=== PATIENT | female | born 1960 | race Caucasian/White ===

== ENCOUNTER → 2017-06-11 07:12 | Outpatient (CLI) | payer OTHER, SELFPAY ==
--- NOTE | 2017-06-11 10:22 | NEURO_ITS ---
NCS and/or EMG Patient Report Ordering Doctor: Krystal Mercado DATE OF SERVICE: 06/11/17 This is a left upper extremity nerve conduction study performed on this 56-year- old female with symptoms including pain at the second digit for 6 months occasional radiating up the arm. No neck pain, she is healthy otherwise. Left upper extremity sensory and motor nerve conduction study is performed demonstrating prolongation of the median motor and sensory distal latency with mild reduction of the median motor amplitudes and conduction velocity. The ulnar motor and sensory and radial sensory responses are normal, the median F wave is mildly prolonged compared to the ulnar F wave. Impression this is an abnormal nerve conduction study of left upper extremity consistent with moderate carpal tunnel syndrome at the left wrist.
== END ==
PROVIDERS: Family Provider Family Medicine; PCP Family Medicine; Visit Provider Family Medicine
DX: G56.02 Carpal tunnel syndrome, left upper limb (principal)
CPT/HCPCS: 95909

== ENCOUNTER → 2017-07-16 16:44 | Outpatient (CLI) | payer OTHER, SELFPAY | PROVIDERS: Visit Provider Family Medicine | DX: R39.9 Unspecified symptoms and signs involving the genitourinary system (principal) | CPT/HCPCS: 87086; 87088 ==

== ENCOUNTER 2017-09-26 10:00 | Outpatient (RCR) | payer OTHER, SELFPAY ==
--- NOTE | 2017-09-02 09:25 | HP.PTEVAL_ITS ---
Patient's Visit Information BRET MAI is a 57 year old F referred to Physical Therapy by Chad Armenta with a diagnosis of Biceps Tendonitis. Date of Evaluation: 09/02/17 Physical Therapist: Gloria Sanchez - Visit Plan Frequency: 2x /Week Duration: 4 Weeks Plan: Focus on scap s/s- postural correction. - Subjective Subjective: Left shoulder tendonitis- has been bothering her about a year ago but started working out and it got better- 3 weeks ago got worse secondary to carpal tunnel surgery. The shoulder has gotten better as she is sleeping and getting back to normal activity. Best: 2/10- Eases: ice and Tylenol. Pain is located in the bicipital groove- Radiates to the elbow and sometimes in the scapula area. No increase in RICO, blurred vision, dizziness. Describes pain as dull and achy. No problems with finger dexterity and N/T now since carpal tunnel. Worst: 8/10 Agg: sitting. Sleep: disturbed- back sleeper. Plan is to get back to her normal exercise program- stay fit 24- doing the weight machines and TM- no limitation from surgeon. 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 X-ray: tendonitis of the shoulder. Has never had neck issues before. PMHx/Meds: no changes. Right hand Dominate. - Objective Posture: FH, RS, Increased kyphosis- can correct but does not maintain. Palpation: tender along medial border of the scapula, upper trap to the tip of the acromion, bicipital groove. ROM: Cervical: Flexion/extn: WNL, SB to the left- increases pain, Rot to the right: increases pain. Shoulder: WFL with pain abduction and IR. Elbow/Wrist/Hand: WNL. Strength: scap: fair minus, Shoulder: 4/5 throughout with pain, Elbow: 4+/5 with pain. Wrist/Hand: not tested. Sensation: WNL. Parnell Vance: positive, Neer: positive - Goals Goal 1:: Patient will be I with HEP and progression Goal Time Frame: 4-6 Weeks Goal 2:: Patient will maintain proper posture t/o tx session to demo increased scap s/s Goal Time Frame: 4-6 Weeks Goal 3:: Patient will report 0/10 pain for 1 week Goal Time Frame: 4-6 Weeks - Rehabilitation Potential Physical Therapy Diagnosis: Patient presents with hypomobility- she has decreased scapular s/s leading to poor posture and increased pain Rehabilitation Potential: Good - Anticipated Interventions Therapeutic Exercise to Include: Strength training, Endurance training, Coordination, Body mechanics, Postural training, Scapular Strength/Stabilization For the Purpose of:: To improve muscle performance and motor function TENS: Yes Cryotherapy (ice pack, ice massage): Yes Thermo therapy (hot pack): Yes Ultrasound (thermal/non thermal): Yes For the Purpose of:: To decrease pain Thank you for the opportunity to evaluate your patient. For Medicare and Medicare HMO plans, please review the plan of care and approve it. It will need to be FAXED BACK to us at [phone] for Medicare purposes. Please let me know if there are questions or concerns regarding this plan of care. Physician Signature: Date:
--- NOTE | 2017-09-26 10:00 | DT_ITS ---
This patient was seen during an EMR downtime September 22, 2017 - September 29, 2017. This patient may have a combination of paper and electronic documentation or all paper documentation. All documentation is viewable within the e-chart portion of [employer] [facility] for each patient visit.
--- NOTE | 2017-09-30 17:17 | HP.PTDCSUM_ITS ---
HP - PT D/C Summary It has been my pleasure to treat BRET MAI under orders from Chad Armenta, for the diagnosis of Biceps Tendonitis for a total of 9 visit(s). Discharge Date: Please see the following information for a summary of their discharge status. - Subjective Subjective: Patient reports that the left shoulder is getting better. Her biggest complaint is that the neck and shoulder have significant stiffness in the AM- she uses ice and then she is good to go for the rest of the day. She does not have a specific sleep position and uses one pillow- which has not changed. She has not had injections in the shoulder but thinks the MD is leaning that way. She sees him this week. She rates the pain at a 6/10 at the worst but then reports being painfree the last 2 days. She would like to continue the exercises at home and be discharged from therapy at this time. - Pain Shoulder Pain Intensity (Out of 10): 7 - Objective Objective/Function: Due to electronic downtime procedure, the information from September 22 through September 28 was electronically scanned into medical records. Posture: FH, RS, increased kyphosis- can correct with verbal cues but does not maintain throughout session. Gait: no deviation- good arm swing and trunk rotation. ROM: WFL in all planes of the cervical spine, shoulder and elbow. Strength: 4+/5 in neutral. Special Test: Impingment: positive Empty Can: negative. Patient subjective and objective measures are inconsistent from visit to visit and often throughout the visit. - Goals Goal 1:: Patient will be I with HEP and progression Goal Progress: Progressing Goal 2:: Patient will maintain proper posture t/o tx session to demo increased scap s/s Goal Progress: Progressing Goal 3:: Patient will report 0/10 pain for 1 week Goal Progress: Progressing - Plan Plan: Discharge to [facility] per patient request- - D/C Information If there are questions or concerns regarding this patient's physical therapy, please feel free to call me at [phone]. Thank you for the referral of this patient. Sincerely, Gloria Sanchez
== END 2017-09-26 19:00 | disposition home or self-care (01) ==
LOC: PT 10:00
PROVIDERS: Family Provider Family Medicine; PCP Family Medicine; Visit Provider Physician Assistant
DX: M75.22 Bicipital tendinitis, left shoulder (principal)
CPT/HCPCS: 97110; 97161; 97530

== ENCOUNTER → 2018-05-11 08:26 | Outpatient (CLI) | payer OTHER, SELFPAY ==
--- NOTE | 2018-05-11 08:28 | RAD_ITS ---
STUDY: X-RAY - ESOPHAGUS (BARIUM SWALLOW) WITH FLUOROSCOPY REASON FOR EXAM: Female, 57 years old. Dysphagia. Upper abdominal pain. TECHNIQUE: 13 view(s) of the esophagus were obtained following swallowing of barium. FLUOROSCOPY TIME (if supplied): (0:26) minutes/seconds COMPARISON: None. FINDINGS: There is no demonstrated esophageal foreign body. There is no demonstrated stricture or mucosal abnormality. Normal gastroesophageal junction, without a demonstrated hiatal hernia. The patient ingested a 12 mm tablet of barium without any difficulty. Normal visualized aortic arch and descending thoracic aorta. Normal visualized pulmonary parenchyma. Normal visualized osseous structures of the thorax. RAD/Esophagus Only IMPRESSION: Normal plain film x-ray examination (barium swallow) of the esophagus. Electronically Signed: Derek Wright MD at 10:01 EST Tel [phone], Service support ,
--- OUTSIDE RECORDS SUMMARY | 2018-07-13 15:43 | XMS RPT_ITS ---
:1960 Author Organization OHIP Care Team Providers Name Role Phone Krystal Mercado Attending Unavailable Krystal Mercado Referring Unavailable Krystal Mercado Primary Care Unavailable Krystal Mercado Attending Unavailable Krystal Mercado Primary Care Unavailable Krystal Mercado Referring Unavailable Krystal Mercado Attending Unavailable Chad Armenta Attending Unavailable Chad Armenta Referring Unavailable Krystal Mercado Primary Care Unavailable PROBLEMS PROBLEMS DATE TYPE CONDITION / CODE ATTENDING STATUS SOURCE 10/08/2017 Unknown M75.22 - Bicipital Chad Armenta Active [place] tendinitis, left [facility] shoulder [facility] M75.22(ICD-10) Repository 07/16/2017 Unknown R39.9 - Unspecified Krystal Mercado Active [place] symptoms and signs Community involving the Hospital genitourinary Repository system / R39.9(ICD-10) 06/11/2017 Unknown G56.02 - Carpal Krystal Mercado Active [place] tunnel syndrome, [facility] left upper limb / Hospital G56.02(ICD-10) Repository PROCEDURES PROCEDURES No Procedure Records FoundRESULTS RESULTS ESOPHAGUS ONLY Observed: 05/11/2018 Status: F Source: [place] 8:[address] [facility] REPOSITORY [facility] Imaging Services [address] [place] [address] Esophagus Only MR#: [id number] Acct: [id number] Name: BRET MAI Rep #: [id number] : 1960 F 57 From: Deerk Wright MD PCP: Krystal Mercado MD Status: REG CLI Study: Esophagus Only Date of Exam: 05/11/18 Exam# [id number] Ordering Dr: Krystal Mercado MD STUDY: X-RAY - ESOPHAGUS (BARIUM SWALLOW) WITH FLUOROSCOPY REASON FOR EXAM: Female, 57 years old. Dysphagia. Upper abdominal pain. TECHNIQUE: 13 view(s) of the esophagus were obtained following swallowing of barium. FLUOROSCOPY TIME (if supplied): (0:26) minutes/seconds COMPARISON: None. FINDINGS: There is no demonstrated esophageal foreign body. There is no demonstrated stricture or mucosal abnormality. Normal gastroesophageal junction, without a demonstrated hiatal hernia. The patient ingested a 12 mm tablet of barium without any difficulty. Normal visualized aortic arch and descending thoracic aorta. Normal visualized pulmonary parenchyma. Normal visualized osseous structures of the thorax. RAD/Esophagus Only IMPRESSION: Normal plain film x-ray examination (barium swallow) of the esophagus. Electronically Signed: Derek Wright MD at 10:01 EST Tel [phone], Service support , CC: Krystal Mercado MD Artificial Teeth Inspector: Signed DOWNTIME REPORT Observed: 10/09/2017 Status: F Source: [place] 12:[address] [facility] REPOSITORY [facility] Medical Records Department [address] [place] [address] Downtime Report MR#: [id number] Acct: [id number] Name: BRET MAI Rep #: [id number] : 1960 57 From: Jamir Downs PCP: Krystal Mercado MD Status: DIS RCR This patient was seen during an EMR downtime September 22, 2017 - September 29, 2017. This patient may have a combination of paper and electronic documentation or all paper documentation. All documentation is viewable within the e-chart portion of [employer] for each patient visit. PT D/C SUMMARY (1) Observed: 09/30/2017 Status: F Source: [place] 5:[address] [facility] REPOSITORY [facility] Physical [facility] [address] [place] [address] Fax REHABILITATION SERVICES DISCHARGE SUMMARY MR#: [id number] Acct: [id number] Name: BRET MAI Rep #: [id number] : 1960 57 From: Gloria Sanchez DPT Referring Dr.: Chad GANN Status: REG RCR Insurance: [facility] SELF PAY INSURANCE HP - PT D/C Summary It has been my pleasure to treat BRET MAI under orders from Chad Armenta, for the diagnosis of Biceps Tendonitis for a total of 9 visit(s). Discharge Date: Please see the following information for a summary of their discharge status. - Subjective Subjective: Patient reports that the left shoulder is getting better. Her biggest complaint is that the neck and shoulder have significant stiffness in the AM- she uses ice and then she is good to go for the rest of the day. She does not have a specific sleep position and uses one pillow- which has not changed. She has not had injections in the shoulder but thinks the MD is leaning that way. She sees him this week. She rates the pain at a 6/10 at the worst but then reports being painfree the last 2 days. She would like to continue the exercises at home and be discharged from therapy at this time. - Pain Shoulder Pain Intensity (Out of 10): 7 - Objective Objective/Function: Due to electronic downtime procedure, the information from September 22 through September 28 was electronically scanned into medical records. Posture: FH, RS, increased kyphosis- can correct with verbal cues but does not maintain throughout session. Gait: no deviation- good arm swing and trunk rotation. ROM: WFL in all planes of the cervical spine, shoulder and elbow. Strength: 4+/5 in neutral. Special Test: Impingment: positive Empty Can: negative. Patient subjective and objective measures are inconsistent from visit to visit and often throughout the visit. - Goals Goal 1:: Patient will be I with HEP and progression Goal Progress: Progressing Goal 2:: Patient will maintain proper posture t/o tx session to demo increased scap s/s Goal Progress: Progressing Goal 3:: Patient will report 0/10 pain for 1 week Goal Progress: Progressing - Plan Plan: Discharge to [facility] per patient request- - D/C Information If there are questions or concerns regarding this patient's physical therapy, please feel free to call me at [phone]. Thank you for the referral of this patient. Sincerely, Gloria Sanchez <Electronically signed by Gloria Sanchez DPT> 09/30/17 4907 CC: Krystal Mercado MD; Chad GANN ELR Signed INITAL EVALUATION (1) Observed: 09/02/2017 Status: F Source: [place] - 9:[address] [facility] REPOSITORY [facility] [address] [place] [address]. [address] [place], [place] [address] Fax REHABILITATION SERVICES INITIAL EVALUATION MR#: [id number] Acct: [id number] Name: BRET MAI Rep #: [id number] : 1960 57 From: Gloria Sanchez DPT Referring Dr.: Chad GANN Status: REG RCR Insurance: [facility] SELF PAY INSURANCE Patient's Visit Information BRET MAI is a 57 year old F referred to Physical Therapy by Chad Armenta with a diagnosis of Biceps Tendonitis. Date of Evaluation: 09/02/17 Physical Therapist: Gloria Sanchez - Visit Plan Frequency: 2x /Week Duration: 4 Weeks Plan: Focus on scap s/s- postural correction. - Subjective Subjective: Left shoulder tendonitis- has been bothering her about a year ago but started working out and it got better- 3 weeks ago got worse secondary to carpal tunnel surgery. The shoulder has gotten better as she is sleeping and getting back to normal activity. Best: 05/31- Eases: ice and Tylenol. Pain is located in the bicipital groove- Radiates to the elbow and sometimes in the scapula area. No increase in RICO, blurred vision, dizziness. Describes pain as dull and achy. No problems with finger dexterity and N/T now since carpal tunnel. Worst: 11/28 Agg: sitting. Sleep: disturbed- back sleeper. Plan is to get back to her normal exercise program- stay fit 24- doing the weight machines and TM- no limitation from surgeon. 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 X-ray: tendonitis of the shoulder. Has never had neck issues before. PMHx/Meds: no changes. Right hand Dominate. - Objective Posture: FH, RS, Increased kyphosis- can correct but does not maintain. Palpation: tender along medial border of the scapula, upper trap to the tip of the acromion, bicipital groove. ROM: Cervical: Flexion/extn: WNL, SB to the left- increases pain, Rot to the right: increases pain. Shoulder: WFL with pain abduction and IR. Elbow/Wrist/Hand: WNL. Strength: scap: fair minus, Shoulder: 4/5 throughout with pain, Elbow: 4+/5 with pain. Wrist/Hand: not tested. Sensation: WNL. Soheila Woodard: positive, [place]: positive - Goals Goal 1:: Patient will be I with HEP and progression Goal Time Frame: 4-6 Weeks Goal 2:: Patient will maintain proper posture t/o tx session to demo increased scap s/s Goal Time Frame: 4-6 Weeks Goal 3:: Patient will report 0/10 pain for 1 week Goal Time Frame: 4-6 Weeks - Rehabilitation Potential Physical Therapy Diagnosis: Patient presents with hypomobility- she has decreased scapular s/s leading to poor posture and increased pain Rehabilitation Potential: Good - Anticipated Interventions Therapeutic Exercise to Include: Strength training, Endurance training, Coordination, Body mechanics, Postural training, Scapular Strength/Stabilization For the Purpose of:: To improve muscle performance and motor function TENS: Yes Cryotherapy (ice pack, ice massage): Yes Thermo therapy (hot pack): Yes Ultrasound (thermal/non thermal): Yes For the Purpose of:: To decrease pain Thank you for the opportunity to evaluate your patient. For Medicare and Medicare HMO plans, please review the plan of care and approve it. It will need to be FAXED BACK to us at [phone] for Medicare purposes. Please let me know if there are questions or concerns regarding this plan of care. Physician Signature: Date: <Electronically signed by Gloria Sanchez DPT> 09/02/17 0925 CC: Krystal Mercado MD; Chad GANN ELR Signed For Medicare only, by signing this I certify the plan of care. Physicians Signature Date Observed: 07/16/2017 Status: F Source: [place] CULTURE, URINE 4:[address] [facility] REPOSITORY Order Date: 07/16/17 Order Info: 630-4 - CUUR Specimen Source: clean catch Urine Culture ORGANISM 1: Mixed Gram Pos AND Gram Neg Org [place] Plane Count 1000-10,000 MIX CULTURE Mixed contaminants. Submit a new specimen if indicated. Performed By: #### M100.0650 #### [facility] [address] [place], [address] NCS AND/OR EMG Observed: 06/11/2017 Status: F Source: [place] PATIENT 10:[address] [facility] REPOSITORY [facility] Pulmonary Services/Neurology [address] [place] [address] MR#: [id number] Acct: [id number] Name: BRET MAI Rep #: [id number] : 1960 56 From: Kev Kaplan MD Referring Dr: Krystal Mercado MD Status: REG CLI Ordering Dr: Date: Location: PSN Sex: F C NCS and/or EMG Patient Report Ordering Doctor: Krystal Mercado DATE OF SERVICE: 06/11/17 This is a left upper extremity nerve conduction study performed on this 56-year-old female with symptoms including pain at the second digit for 6 months occasional radiating up the arm. No neck pain, she is healthy otherwise. Left upper extremity sensory and motor nerve conduction study is performed demonstrating prolongation of the median motor and sensory distal latency with mild reduction of the median motor amplitudes and conduction velocity. The ulnar motor and sensory and radial sensory responses are normal, the median F wave is mildly prolonged compared to the ulnar F wave. Impression this is an abnormal nerve conduction study of left upper extremity consistent with moderate carpal tunnel syndrome at the left wrist. 06/11/17 1038 <Electronically signed by Kev Kaplan MD> Date Kev Kaplan MD CC: Krystal Mercado MD; Kev Kaplan MD Date Dictated: 06/11/17 1020 Date Transcribed: 06/11/17 1020 Artificial Teeth Inspector: NF Signed ALLERGIES ALLERGIES DATE TYPE / CODE NAME / CODE REACTION SEVERITY SOURCE 02/10/2015 Drug paroxetine Other Unknown [place] Allergy/416 HCl/[id number](RXNO [address]) Repository 02/10/2015 Drug fexofenadine Other Unknown [place] Allergy/416 HCl/[id number](NO [address]) Repository 02/10/2015 Drug Penicillins/[id number] Nausea/Vom/Leydi Unknown [place] Allergy/416 476(RXNORM) rrhea [facility] 237292([facility] ED CT) Repository ENCOUNTERS ENCOUNTERS ADMIT/DISCHARGE ACCOUNT ADMITTING ENCOUNTER LOCATION SOURCE NUMBER CLASS 05/11/2018 [id number] Ambulatory [place] 6 [facility] ing:RAD Repository 09/26/2017/ [id number] Ambulatory [place] 8 1 [facility] ing:PT Repository 07/16/2017 [id number] Ambulatory [place] 6 [facility] ing:LABSPEC Repository 06/11/2017 [id number] Ambulatory [place] 0 [facility] ing:PSN Repository PAYERS PAYERS ENCOUNTER GUARANTOR PAYER SUBSCRIBER SOURCE 05/11/2018 BRET Cuevas [id number] Primary JOVAN ZHONG Insurance:MEDICAL I[place]OB: [facility] [id number] [facility] [address]Cud: [phone]) Number: Repository [phone] () [id number] Date:[id number] [address] [place] [id number]: 05/11/2018 Secondary NOT GIVENUNK [place] Insurance:SELF PAY [facility] Number: Effective Repository Date:2018-05-06 09/26/2017 Bret Cuevas [id number] Primary [place] Insurance:MEDICAL I[place]OB: [facility] [id number] [id number]: [phone]) Number: Repository [phone] () [id number] Date:[id number] [address] [place], [place] [address]WP: 09/26/2017 Secondary NOT GIVENUNK [place] Insurance:SELF PAY [facility] Number: Effective Repository Date:2017-08-28 07/16/2017 Bret Cuevas [id number] Primary [place] Insurance:MEDICAL IIDOB: [facility] [id number] [id number]: [phone]) Number: Repository [phone] () [id number] Date:[id number] [address] [place], [place] [address]: 07/16/2017 Secondary NOT GIVENUNK [place] Insurance:SELF PAY [facility] Number: Effective Repository Date:2017-07-16 06/11/2017 Bret Cuevas [id number] Primary JOVAN [place] Insurance:MEDICAL IIDOB: [facility] [id number] Hospital [address]Fmc: [phone]) Number: Repository [phone] () [id number] Date:[id number] [address], [place] [address]KA: 06/11/2017 Secondary NOT GIVENUNK [place] Insurance:SELF PAY [facility] Number: Effective Repository Date:2017-04-02
== END ==
PROVIDERS: Family Provider Family Medicine; PCP Family Medicine; Referring Provider Family Medicine; Visit Provider Family Medicine
DX: R10.9 Unspecified abdominal pain (principal)
CPT/HCPCS: 74220

== ENCOUNTER → 2018-07-06 14:39 | Outpatient (CLI) | payer OTHER, SELFPAY ==
--- NOTE | 2018-07-06 | IMM_PTH ---
PATIENT: BRET MAI LOC: [facility] U#:[id number] AGE/SX: 64/F ROOM: RE07/06/[address]: Dr. Gilbert Bose MD : 1960 BED: DIS: SPEC #: [id number] RECD: 07/07/18 12:31 STATUS: LETICIA TATY #: [id number] MICA: 07/06/18 00:[address]: Gilbert Bose DEPT: IMMUNOHISTOCHEMISTRY RECD BY: Roma Tinsley ENTERED: 07/07/18 12:31 SP TYPE: IMMUNO OTHR DR: Dr. Krystal Mercado MD Tissues: Stomach, NOS Procedures: H Pylori (initial) PHYSICIAN & INSTITUTION [place] [id number] SPECIMEN INFORMATION: Tissue Source: Gastric antrum body biopsy Clinical Info: Nausea, gastric pain Specimen Number: [id number] CPT code: 24749 METHODOLOGY: Deparaffinized sections of prefer/formalin-fixed tissue or PAP/DQ stained slides are incubated with monoclonal/polyclonal antibodies/oligonucleotide probes. Localization is made via biotin free immunoperoxidase method. Appropriate controls are performed and reacted as expected. Results on target cell population are indicated in the following table: RESULTS: ANTIBODY / CLONE RESULT H Pylori (polyclonal) negative These tests were developed and their performance characteristics determined by [facility]. They may not have been cleared or approved by the U.S. Food and Drug Administration. The FDA has determined that such clearance or approval is not necessary. INTERPRETATION: Gastric antrum body, biopsy: Negative for Helicobacter pylori organisms. SJ:claire 07/07/18
--- NOTE | 2018-07-06 08:28 | EGD_PTH ---
PATIENT: BRET MAI LOC: [facility] U#:[id number] AGE/SX: 64/F ROOM: RE07/06/[address]: Dr. Gilbert Bose MD : 1960 BED: DIS: SPEC #: [id number] RECD: 07/06/18 14:23 STATUS: LETICIA WELL[place]Ciar[place] #: [id number] MICA: 07/06/18 08:[address]: Gilbert Bose DEPT: SURGICAL PATHOLOGY RECD BY: Dangelo Vargas ENTERED: 07/06/18 14:49 SP TYPE: EGD BIOPSY OTHR DR: Dr. Krystal Mercado MD [facility] Tissues: Gastric mucous membrane Procedures: Surgery Specimen Level IV HEADER OPERATION: EGD with biopsies PRE-OP DIAGNOSIS: Nausea, gastric pain TISSUE SUBMITTED: Gastric antrum body biopsies, rule out gastritis MICROSCOPIC DIAGNOSIS Gastric antrum body, biopsy: Mild gastritis. See microscopic description and comment. SJ:claire 07/07/18 COMMENT The results of immunohistochemistry for Helicobacter pylori will be reported separately ([id number]). MICROSCOPIC DESCRIPTION Slides are reviewed. The specimen shows fragments of gastric mucosa with chronic inflammatory cell infiltrates in the lamina propria consisting of lymphocytes and plasma cells, consistent with mild chronic gastritis. GROSS DESCRIPTION Received in fixative is one container labeled with the patient's name and designated gastric antrum body biopsy. The specimen consists of multiple irregular fragments of light ponce soft tissue that in aggregate measure 0.6 x 0.5 x 0.1 cm. The specimen is totally submitted in one cassette. / SJ:rg 07/06/18 TC:5 CPT: 09907
== END ==
PROVIDERS: Family Provider Family Medicine; PCP Family Medicine; Referring Provider Internal Medicine Gastroenterology; Visit Provider Internal Medicine Gastroenterology
DX: R11.0 Nausea (principal); R10.13 Epigastric pain
CPT/HCPCS: 88305; 88342

== ENCOUNTER → 2018-08-28 10:56 | Outpatient (CLI) | payer OTHER, SELFPAY ==
[2018-08-28 10:46] VITALS: BMI 40.5
--- NOTE | 2018-08-28 10:58 | RAD_ITS ---
STUDY: X-RAY - LEFT ELBOW REASON FOR EXAM: Female, 58 years old. Posterior elbow pain following a fall. TECHNIQUE: 3 view(s) of the elbow. COMPARISON: None. FINDINGS: Normal visualized humerus, radius and ulna. Normal radiocapitellar and ulnotrochlear articulations. The soft tissue structures are unremarkable. RAD/Elbow min 3 Views IMPRESSION: Normal x-ray examination of the elbow. Electronically Signed: Derek Wright, at 11:21 EDT , Service support ,
== END ==
PROVIDERS: Family Provider Family Medicine; PCP Family Medicine; Referring Provider Physician Assistant Surgical; Visit Provider Physician Assistant Surgical
DX: S50.02XA Contusion of left elbow, initial encounter (principal); X58.XXXA Exposure to other specified factors, initial encounter; Y93.9 Activity, unspecified; Y92.9 Unspecified place or not applicable; Y99.9 Unspecified external cause status
CPT/HCPCS: 73080

== ENCOUNTER → 2018-09-22 14:43 | Outpatient (CLI) | payer OTHER, SELFPAY ==
[2018-08-28 10:46] VITALS: BMI 40.5
== END ==
PROVIDERS: Family Provider Family Medicine; PCP Family Medicine; Referring Provider Family Medicine; Visit Provider Family Medicine
DX: N39.0 Urinary tract infection, site not specified (principal)
CPT/HCPCS: 87086; 87088

== ENCOUNTER → 2019-06-18 14:57 | Outpatient (CLI) | payer OTHER, SELFPAY ==
[2018-08-28 10:46] VITALS: BMI 40.5
[2019-06-18 17:40] LABS: Internal QC Validated? YES +Cl - CLEAR BKGD; Monotest Negative (Negative)
[2019-06-18 17:44] LABS: Absolute Lymphocyte Count 2.32 X10^3/uL (0.83-4.51); Absolute Neutrophil Count 4.9 X10^3/uL (2.0-7.7); Basophil# 0.04 X10^3/uL; Basophil% 0.5 % (0-1); Eosinophil# 0.25 X10^3/uL; Eosinophils% 3.1 % (0-5); Hematocrit 41.4 % (37-47); Hemoglobin 13.4 g/dL (12.0-15.0); Lymphocyte # 2.32 X10^3/ul (4.0); Lymphocyte % 29.1 % (19-41); Mean Corp Hgb Conc 32.4 g/dL (32-36); Mean Corpuscular Hgb 30.5 pg (27.0-32.0); Mean Corpuscular Volume 94.3 fL (81-99); Mean Platelet Vol. 9.1 fl (6.2-12.0); Monocyte# 0.48 X10^3/uL; NRBC Flagged by Analyzer 0 % (0-5); Neutrophil # 4.85 X10^3/uL (2.7-7.7); Neutrophil % 60.9 % (47-70); Platelet Count 323 K/mm3 (150-450); RBC Distribution Width CV 12.8 % (11.6-14.6); RBC Distribution Width SD 44.2 fl (35.1-43.9); Red Blood Count 4.39 M/mm3 (4.2-5.4)
[2019-06-18 17:59] LABS: ALB/GLOB Ratio 0.9 RATIO (0.9-2.4); AST(SGOT) 22 U/L (15-37); Alanine Aminotransfer ALT/SGPT 27 U/L (13-56); Albumin, Serum 3.5 g/dL (3.2-5.0); Alkaline Phosphatase 106 U/L (45-117); Anion Gap 7 (5-15); BUN 14 mg/dL (7-18); BUN/Creat Ratio 17.2 RATIO (10-20); Calcium,Total 8.6 mg/dL (8.5-10.1); Chloride 105 mmol/L (98-107); Creatinine, Serum 0.82 mg/dL (0.55-1.02); EST Glomerular Filtration Rate 76 mL/min (>60); Est Glom Filt Rate - Afr Amer 92 mL/min (>60); Globulin 4.1 g/dL (2.2-4.2); Glucose 123 mg/dL (74-106); Potassium 3.8 mmol/L (3.5-5.1); Protein, Total 7.6 g/dL (6.4-8.2); Sodium Level 138 mmol/L (136-145); Thyroid Stim Hormone (TSH) 2.02 uIU/mL (0.358-3.74)
== END ==
PROVIDERS: PCP Family Medicine; Visit Provider Family Medicine
DX: R53.81 Other malaise (principal); R53.83 Other fatigue
CPT/HCPCS: 36415; 80053; 84443; 85025; 86308

== ENCOUNTER → 2019-12-20 17:23 | Outpatient (CLI) | payer OTHER, SELFPAY ==
[2018-08-28 10:46] VITALS: BMI 40.5
== END ==
PROVIDERS: PCP Family Medicine; Referring Provider Family Medicine; Visit Provider Family Medicine
DX: U07.1 COVID-19 (principal)
CPT/HCPCS: 87635; 94799; U0003

== ENCOUNTER → 2020-10-16 16:34 | Outpatient (CLI) | payer OTHER, SELFPAY ==
[2018-08-28 10:46] VITALS: BMI 40.5
[2020-10-16 18:23] LABS: Absolute Lymphocyte Count 2.61 X10^3/uL (0.83-4.51); Absolute Neutrophil Count 4.9 X10^3/uL (2.0-7.7); Basophil# 0.06 X10^3/uL; Basophil% 0.7 % (0-1); Eosinophil# 0.25 X10^3/uL; Hematocrit 40.3 % (37-47); Hemoglobin 13.2 g/dL (12.0-15.0); Lymphocyte # 2.61 X10^3/ul (0.83-4.51); Lymphocyte % 31.2 % (19-41); Mean Corp Hgb Conc 32.8 g/dL (32-36); Mean Corpuscular Hgb 31.1 pg (27.0-32.0); Monocyte# 0.51 X10^3/uL; Monocyte% 6.1 % (0-10); NRBC Flagged by Analyzer 0 % (0-5); Neutrophil % 58.6 % (47-70); Platelet Count 339 K/mm3 (150-450); RBC Distribution Width CV 12.8 % (11.6-14.6); Red Blood Count 4.24 M/mm3 (4.2-5.4); White Blood Count 8.4 K/mm3 (4.4-11.0)
[2020-10-16 18:45] LABS: AST(SGOT) 21 U/L (15-37); Alanine Aminotransfer ALT/SGPT 29 U/L (13-56); Albumin, Serum 3.6 g/dL (3.2-5.0); Alkaline Phosphatase 116 U/L (45-117); Anion Gap 7 (5-15); BUN 12 mg/dL (7-18); Calcium,Total 8.9 mg/dL (8.5-10.1); Chloride 103 mmol/L (98-107); Cholesterol 187 mg/dL (200); Creatinine, Serum 0.75 mg/dL (0.55-1.02); EST Glomerular Filtration Rate 83 mL/min (>60); Est Glom Filt Rate - Afr Amer 101 mL/min (>60); Globulin 3.7 g/dL (2.2-4.2); Glucose 123 mg/dL (74-106); High Density Lipoprotein 37 mg/dL; Potassium 4.3 mmol/L (3.5-5.1); Protein, Total 7.3 g/dL (6.4-8.2); Sodium Level 140 mmol/L (136-145); Triglycerides 405 mg/dL
== END ==
PROVIDERS: PCP Family Medicine; Visit Provider Family Medicine
DX: K65.1 Peritoneal abscess (principal)
CPT/HCPCS: 36415; 80053; 80061; 85025

== ENCOUNTER 2020-10-16 17:12 | Emergency (ER) | payer OTHER, SELFPAY ==
[2018-08-28 10:46] VITALS: BMI 40.5
[2020-10-16 17:14] VITALS: BP 155/86; PULSE 74; RESP 15; TEMP 36.8; O2SAT 98; BMI 40.4
--- NOTE | 2020-10-16 18:50 | CT_ITS ---
INDICATION: abdominal pain -- IV PO Contrast EXAMINATION: CT Abdomen And Pelvis W/ Contrast Injection TECHNIQUE: Helically acquired images were obtained of the abdomen and pelvis after IV contrast. A radiation dose optimization technique was used for this scan. IV Contrast dosage and agent: Oral and amp; IV Gastrografin and amp; 100mL Isovue-300 Oral contrast: None. COMPARISON: None. FINDINGS: Visualized lung bases: Small calcified granuloma in the right lung base. Liver: Liver is enlarged measuring 22 cm in craniocaudal dimension. Gallbladder: Surgically absent. Spleen: There is heterogeneous enhancement of the spleen. No focal discrete mass. Spleen is not enlarged. Pancreas: Unremarkable Adrenal Glands: Unremarkable Kidneys: Scattered too small to characterize subcentimeter hypodensities bilaterally. Vasculature: Mild scattered aortoiliac atherosclerotic calcifications. GI Tract: Unremarkable Lymphadenopathy: None Peritoneum: No ascites. Bladder: Unremarkable Reproductive organs: Unremarkable Bones/Soft tissues: Mild scattered degenerative changes of the visualized spine. CT/Abdomen/Pelvis WITH Contrast IMPRESSION: Heterogeneously enhancing non-enlarged spleen with no focal discrete mass. During portal venous phase of contrast, the spleen is expected to be homogeneous in appearance. Differential includes delayed enhancement, infarction and lymphoma. A multiphase MR abdomen may be beneficial. Hepatomegaly. No other acute findings. Electronically Signed: Jamie Oakley MD at 21:38 EDT Tel , Service support ,
--- NOTE | 2020-10-16 18:51 | EDS_ITS ---
HPI HPI - GI History of Present Illness Chief Complaint: Abd Pain Detail of Chief Complaint: Abdominal pain for 3 days and not feeling well for about a week Informant: patient Abdominal Pain/Flank Pain Current Severity: 6/10 Nausea/Vomiting/Emesis GI Symptom: Positive for Nausea Diarrhea/Melena/Hematochezia GI Symptom: Negative for Diarrhea, Melena and Hematochezia Narrative Narrative: Patient presents to the emergency department with complaint of not feeling well for the last week. Patient's had nausea. She started having abdominal pain 3 days ago. Pain is mostly to her right side and into her back. Patient continues to have nausea but no vomiting. She denies fevers. She denies urinary symptoms. She denies blood in her stool or black tarry stools. She had a normal bowel movement today. Patient was seen by physician ban for her primary care physician and was referred to the emergency department for further work-up of her abdominal pain. Patient has had prior cholecystectomy and prior C-sections. Prior similar symptoms: No PFSH PFSH Medical History (Updated 10/16/20 @ 21:[address] Melonie Brown, ) Back pain Difficulty balancing Fatigue Hay fever Hemorrhoids Shoulder pain Home Medications fluoxetine 20 mg capsule 40 mg PO DAILY 08/28/18 [History Last Taken Unknown] Allergy/AdvReac Type Severity Reaction Status Date / Time fexofenadine HCl Allergy Other Verified 10/16/20 17:13 [From Antonella] paroxetine HCl [From Paxil] AdvReac Other Verified 10/16/20 17:13 Penicillins AdvReac Nausea/Vom/ Verified 10/16/20 17:13 Diarrhea Surgical History History of cholecystectomy Hx of section Social History (Updated 08/28/18 @ 15:55 by João GANN, PA) Smoking Status: Never smoker alcohol intake: current details: SOCIALLY ROS ROS ED Constitutional Constitutional ED: Reports systems reviewed and no addt'l complaints, except as documented; Denies body ache(s), change in weight or chills Eyes Eyes: Denies acute decrease in peripheral vision, change in vision, double vision or loss of vision ENT ENT ED: Reports none; Denies ear pain, lip swelling, loss taste/smell, neck pain, otalgia or sore throat Cardiovascular Cardiovascular: Reports none; Denies abdominal pain, chest pain with activity, leg edema, lightheadedness, palpitations, rapid heart rate or syncope Respiratory/Chest Respiratory/Chest: Reports none; Denies change in mental status, dry cough, dyspnea, hemoptysis, shortness of breath at rest or shortness of breath with exertion Gastrointestinal Gastrointestinal: Reports abdominal pain and nausea; Denies constipation, diarrhea, melena or vomiting Genitourinary Genitourinary ED: Reports none; Denies abdominal discomfort, anuria, dysuria, genital pain or polyuria Musculoskeletal Musculoskeletal: Reports none; Denies arthralgias, back pain, difficulty walking, extremity pain, muscle weakness or myalgias Integumentary Reports none; Denies abscess or rash Neurologic Neurologic: Reports none; Denies abnormal gait, confusion, focal weakness, freq uent falls, headache(s), loss of vision, numbness, paresthesias, radicular pain, vertigo or weakness Psychiatric Psychiatric: Reports systems reviewed and no addt'l complaints, except as documented and none; Denies behavioral changes, confusion, difficulty concentrating, hallucinations, suicidal ideation, tactile hallucinations or visual hallucinations Endocrine Endocrinology: Denies none, cold intolerance, excessive sweating, fatigue or heat intolerance Hematologic/Lymphatic Hematologic/Lymphatic: Reports none; Denies anemia, easy bleeding or easy bruising Allergic/Immunologic Allergic/Immunologic ED: Denies as per HPI, none, lip swelling, mouth swelling, throat swelling, tongue swelling or hives EXAM Physical Exam Const Vital Signs: 10/16/20 17:14 10/16/20 21:00 Temperature 98.2 F Temperature Source Temporal Pulse Rate 74 71 Respiratory Rate 15 Blood Pressure 155/86 H 121/63 H Blood Pressure Mean 109 82 Pulse Ox 98 99 Oxygen Delivery Method Room Air Room Air Positive well nourished and well developed General Appearance ED: well developed and NAD HEENT Reports TM's clear and moist mucous membranes normocephalic and atraumatic; Negative for trauma or tenderness Tympanic Membrane ED: Yes TM's clear Eyes PERRL and EOMs intact bilaterally General Eye ED: Negative for pale conjunctiva or scleral icterus Neck no lymphadenopathy, supple and no JVD General: Negative for tenderness Chest Wall inspection of chest normal and palpation of chest normal Chest: Negative for tenderness Resp normal respiratory effort and clear to auscultation bilaterally Effort and Inspection: Negative for respiratory distress or pain with movement Auscultation: Negative for rhonchi, wheezes or diminished lung sounds Cardio regular rate, regular rhythm, S1 normal heart sound, S2 normal heart sound and no murmurs Peripheral Pulses: pulses 2+ throughout GI normal to inspection, nondistended, normoactive bowel sounds, soft to palpation, non-distended and no masses GI Narrative: Patient has tenderness palpation over the right lower quadrant over McBurney's with guarding. Patient also has tenderness palpation over the right upper quadrant. There is no rebound, rigidity, or perineal signs. Palpation: tender Back/Spine no CVA tenderness and no thoracic nor lumbar tenderness Extremity normal to inspection General Extremety ED: Negative for edema General Extremity: Negative for edema Neuro oriented x3, CN's II-XII intact bilaterally, no sensory deficits noted and gait normal Sensorium / Orientation: awake, alert, oriented to person, oriented to place and oriented to time Motor Exam: strength 5/5 throughout and strength abnormal Psych mental status grossly normal Skin no rashes or lesions noted and no wounds MDM MDM MDM Narrative Medical decision making narrative: Patient's work-up unremarkable in the department. She denies anything for pain. Patient states that her primary care physician ordered her something for pain for home. At this point etiology of her abdominal pain is unclear. On CT scan she did have some heterogenous opacification of the spleen which could be delayed filling of contrast versus infarction versus lymphoma. I did discuss this finding with patient however my suspicion of lymphoma and infarction are low especially given the patient has no pain to the left side. Patient's normal white blood cell count and essentially benign abdomen otherwise. She will follow-up with her primary care physician regarding these findings as radiology did recommend potentially obtaining an MR of the abdomen. Lab Data Attestation: I reviewed the patient's lab results. Labs: Laboratory Results - last 24 hr 10/16/20 10/16/20 10/16/20 18:45 18:45 19:00 WBC 10.2 RBC 4.37 Hgb 13.5 Hct 41.2 MCV 94.3 MCH 30.9 MCHC 32.8 RDW Std Deviation 43.8 RDW Coeff of Michael 12.6 Plt Count 318 MPV 8.6 Immature Gran % (Auto) 0.400 Neut % (Auto) 63.0 Lymph % (Auto) 27.4 [place] % (Auto) 6.3 Eos % (Auto) 2.5 Baso % (Auto) 0.4 Absolute Neuts (auto) 6.4 Absolute Lymphs (auto) 2.78 Nucleated RBC % 0 Sodium 139 Potassium 4.0 Chloride 104 Carbon Dioxide 30.0 Anion Gap 5 BUN 13 Creatinine 0.79 Estim Creat Clear Calc 58.40 Est GFR (MDRD) Af Amer 95 Est GFR (MDRD) Non-Af 79 BUN/Creatinine Ratio 16.5 Glucose 115 H Lactic Acid 1.3 Calcium 9.1 Total Bilirubin 0.30 AST 18 ALT 26 Alkaline Phosphatase 117 Total Protein 7.7 Albumin 3.7 Globulin 4.0 Albumin/Globulin Ratio 0.9 Lipase 225 Urine Color Urine Clarity Urine pH Ur Specific [place] Urine Protein Urine Glucose (UA) Urine Ketones Urine Occult Blood Urine Nitrite Urine Bilirubin Urine Urobilinogen Ur Leukocyte Esterase Urine RBC Urine WBC Ur Squamous Epith Cells Urine Bacteria Urine Mucus 10/16/20 19:00 WBC RBC Hgb Hct MCV MCH MCHC RDW Std Deviation RDW Coeff of Michael Plt Count MPV Immature Gran % (Auto) Neut % (Auto) Lymph % (Auto) [place] % (Auto) Eos % (Auto) Baso % (Auto) Absolute Neuts (auto) Absolute Lymphs (auto) Nucleated RBC % Sodium Potassium Chloride Carbon Dioxide Anion Gap BUN Creatinine Estim Creat Clear Calc Est GFR (MDRD) Af Amer Est GFR (MDRD) Non-Af BUN/Creatinine Ratio Glucose Lactic Acid Calcium Total Bilirubin AST ALT Alkaline Phosphatase Total Protein Albumin Globulin Albumin/Globulin Ratio Lipase Urine Color Yellow Urine Clarity Clear Urine pH 5.0 Ur Specific [place] 1.025 Urine Protein Negative Urine Glucose (UA) Normal Urine Ketones Negative Urine Occult Blood 10 H Urine Nitrite Negative Urine Bilirubin Negative Urine Urobilinogen Normal Ur Leukocyte Esterase Negative Urine RBC 0 SEEN Urine WBC 0 SEEN Ur Squamous Epith Cells 0-5 SEEN Urine Bacteria 1+ Urine Mucus 0 SEEN Radiography Diagnostic Testing: Radiology Impression Abdomen/Pelvis CT 10/16/20 18:50 IMPRESSION: Heterogeneously enhancing non-enlarged spleen with no focal discrete mass. During portal venous phase of contrast, the spleen is expected to be homogeneous in appearance. Differential includes delayed enhancement, infarction and lymphoma. A multiphase MR abdomen may be beneficial. Hepatomegaly. No other acute findings. Electronically Signed: Jamie Oakley MD at 21:38 EDT Tel , Service support , Discharge Plan Triage Chief Complaint: Abd Pain ED Provider: Melonie Brown Dx/Rx/DC Orders Clinical Impression: Abdominal pain Instructions: ED Abdominal Pain Unkn Cause Fem Prescriptions: No Action fluoxetine 20 mg capsule 40 mg PO DAILY RF: 0 Primary Care Provider: Krystal Mercado Referrals: Krystal Mercado MD [Primary Care Provider] - 3-5 Days Disposition Disposition: Home, Self Care
[2020-10-16] MEDS: 0.9% Normal Saline 1,000 ML 125 ML IV (19:05)
[2020-10-16 19:08] LABS: Mucous, Urine 0 SEEN /hpf (<or=2+); Red Blood Cells-Urine 0 SEEN /hpf (0-5); White Blood Cells 0 SEEN /hpf (0-5)
[2020-10-16 19:14] LABS: Absolute Lymphocyte Count 2.78 X10^3/uL (0.83-4.51); Absolute Neutrophil Count 6.4 X10^3/uL (2.0-7.7); Basophil# 0.04 X10^3/uL; Basophil% 0.4 % (0-1); Eosinophil# 0.25 X10^3/uL; Eosinophils% 2.5 % (0-5); Hematocrit 41.2 % (37-47); Hemoglobin 13.5 g/dL (12.0-15.0); Lymphocyte # 2.78 X10^3/ul (0.83-4.51); Lymphocyte % 27.4 % (19-41); Mean Corp Hgb Conc 32.8 g/dL (32-36); Mean Corpuscular Hgb 30.9 pg (27.0-32.0); Mean Corpuscular Volume 94.3 fL (81-99); Mean Platelet Vol. 8.6 fl (6.2-12.0); Monocyte# 0.64 X10^3/uL; Monocyte% 6.3 % (0-10); NRBC Flagged by Analyzer 0 % (0-5); Neutrophil # 6.41 X10^3/uL (2.7-7.7); Platelet Count 318 K/mm3 (150-450); RBC Distribution Width CV 12.6 % (11.6-14.6); RBC Distribution Width SD 43.8 fl (35.1-43.9); Red Blood Count 4.37 M/mm3 (4.2-5.4); White Blood Count 10.2 K/mm3 (4.4-11.0)
[2020-10-16 19:17] LABS: Color, Urine Yellow (Yellow); Glucose, Dipstick Normal (Normal); Ketone-Dipstick Negative (Negative); Leukocyte Esterase-Dipstick Negative /ul (Negative); Nitrite-Dipstick Negative (Negative); Occult Blood-Urine 10 /ul (Negative); Protein-Dipstick Negative (Negative); Specific Gravity, Urine 1.025 (1.002-1.030); Urine Bilirubin Dipstick Negative (Negative); Urine Clarity Clear (Clear); Urine Urobilinogen Normal (Normal)
[2020-10-16 19:27] LABS: ALB/GLOB Ratio 0.9 RATIO (0.9-2.4); AST(SGOT) 18 U/L (15-37); Alanine Aminotransfer ALT/SGPT 26 U/L (13-56); Albumin, Serum 3.7 g/dL (3.2-5.0); Alkaline Phosphatase 117 U/L (45-117); Anion Gap 5 (5-15); BUN 13 mg/dL (7-18); BUN/Creat Ratio 16.5 RATIO (10-20); Calcium,Total 9.1 mg/dL (8.5-10.1); Chloride 104 mmol/L (98-107); Creatinine, Serum 0.79 mg/dL (0.55-1.02); EST Glomerular Filtration Rate 79 mL/min (>60); Est Glom Filt Rate - Afr Amer 95 mL/min (>60); Glucose 115 mg/dL (74-106); Lipase 225 U/L (73-393); Protein, Total 7.7 g/dL (6.4-8.2); Sodium Level 139 mmol/L (136-145)
[2020-10-16 19:40] LABS: Bacteria 1+ /hpf (None Seen); Squamous Epithelial Cells - UA 0-5 SEEN /hpf (5-10)
[2020-10-16 19:50] LABS: Lactic Acid 1.3 mmol/L (0.4-1.9)
[2020-10-16 21:00] VITALS: BP 121/63; PULSE 71; O2SAT 99
[2020-10-16 21:58] VITALS: BP 121/63; PULSE 71; RESP 18
== END 2020-10-16 21:55 | disposition home or self-care (01) ==
PROVIDERS: Emergency Provider Emergency Medicine; PCP Family Medicine
DX: R10.9 Unspecified abdominal pain (principal); K65.1 Peritoneal abscess; R11.2 Nausea with vomiting, unspecified; Z90.49 Acquired absence of other specified parts of digestive tract; Z79.899 Other long term (current) drug therapy
CPT/HCPCS: 36415; 74177; 80053; 80061; 81001; 83605; 83690; 85025; 96360; 96361; 99283; J7030; Q9967; A4216

== ENCOUNTER → 2020-11-13 06:54 | Outpatient (CLI) | payer OTHER, SELFPAY ==
[2018-08-28 10:46] VITALS: BMI 40.5
[2020-10-16 17:14] VITALS: BMI 40.4
--- NOTE | 2020-11-13 08:24 | NEURO ---
NCS and/or EMG Patient Report Ordering Doctor: Krystal Mercado DATE OF SERVICE: 11/13/20 Indication: Right hand numbness and diminished dexterity. Symptoms are variable, worse in the morning or with repeated activity. No localized or radicular neck pain. Evaluate for entrapment neuropathy. Findings: Nerve conduction studies were performed in the right upper extremity. The right median motor study recording the abductor pollicis brevis showed a normal amplitude, prolonged distal latency and normal conduction velocity. The right ulnar motor study recording the abductor digiti minimi showed a normal amplitude, normal distal latency and normal conduction velocity. No conduction block or focal slowing was present across the elbow. The right median sensory response recording digit two showed a reduced amplitude, prolonged latency and markedly slowed conduction velocity. The right ulnar sensory response recording digit five showed a normal amplitude, latency and conduction velocity. The right radial sensory response recording over the extensor snuff box showed a normal amplitude, latency and conduction velocity. Right median-ulnar lumbrical / interosseous motor latencies showed a prolonged median latency compared to the ulnar. Needle EMG of the right upper extremity and cervical paraspinal muscles was performed. No denervation was seen in any muscle. In the right abductor pollicis brevis motor units were slightly polyphasic, but otherwise unremarkable. All other examined muscles revealed normal motor unit morphology, activation and recruitment patterns. Impression: This is an abnormal study. There is electrophysiologic evidence of median neuropathy across the wrist on the right side. The pathophysiology is demyelination. These findings are compatible with the clinical diagnosis of carpal tunnel syndrome. In addition, there is no electrophysiologic evidence of cervical radiculopathy, brachial plexopathy or other entrapment neuropathy in the right upper extremity. Jamie Romero D.O.
== END ==
PROVIDERS: PCP Family Medicine; Referring Provider Family Medicine; Visit Provider Family Medicine
DX: G56.01 Carpal tunnel syndrome, right upper limb (principal)
CPT/HCPCS: 95886; 95910

== ENCOUNTER → 2020-11-20 10:12 | Outpatient (CLI) | payer OTHER, SELFPAY ==
--- NOTE | 2020-11-20 10:24 | MRI_ITS ---
STUDY: MRI ABDOMEN WITH AND WITHOUT CONTRAST REASON FOR EXAM: Female, 60 years old. Genital malformation of spleen. Follow-up. TECHNIQUE: Standardized fat and water weighted pulse sequences were obtained in all 3 orthogonal planes post contrast administration. 20ml IV Dotarem was administered for the contrast portion of the examination. COMPARISON: CT of the abdomen and pelvis, 10/16/2020. FINDINGS: The visualized lung bases are unremarkable. The visualized portions of the heart are within normal limits. Liver is normal in size and contour. There is mild heterogeneity of signal intensity consistent with geographic fatty interval radiation. Gallbladder is not visualized. No biliary ductal dilatation. The spleen is normal in size contour and density. There is no focal mass. There is no abnormal contrast enhancement. Normal pancreas. Normal bilateral adrenal glands. Normal right kidney. Normal left kidney. Normal visualized stomach. Normal visualized small intestine. Normal visualized colon. Normal abdominal aorta. Normal inferior vena cava. Normal retroperitoneum. Normal abdominal wall. Normal osseous structures. MRI/MRI Abd WITH and W/O Contrast IMPRESSION: 1. Normal spleen. The irregular contrast enhancement seen in the spleen is thought due to early phase of enhancement. 2. Geographic fatty infiltration liver. 3. Otherwise normal MRI of the abdomen. Electronically Signed: Matheus Verdugo DO at 22:21 EDT Tel [phone], Service support ,
[2020-11-20 10:46] LABS: CREATININE FINGERSTICK 0.6 mg/dL (0.55-1.02); EGFR FINGERSTICK > 60.0000 mL/min (>60)
== END ==
PROVIDERS: PCP Family Medicine; Referring Provider Family Medicine; Visit Provider Family Medicine
DX: Q89.09 Congenital malformations of spleen (principal)
CPT/HCPCS: 74183; A9575; A4216

== ENCOUNTER → 2020-12-20 13:20 | Outpatient (CLI) | payer OTHER, SELFPAY | PROVIDERS: PCP Family Medicine; Visit Provider Family Medicine | DX: Z20.828 Contact with and (suspected) exposure to other viral communicable diseases (principal) | CPT/HCPCS: 87635; U0005; U0003 ==

== ENCOUNTER → 2021-08-29 | Outpatient (CLI) | payer OTHER, SELFPAY ==
[2021-08-29 17:47] LABS: Absolute Neutrophil Count 5.7 X10^3/uL (2.0-7.7); Basophil# 0.03 X10^3/uL; Basophil% 0.4 % (0-1); Eosinophil# 0.12 X10^3/uL; Eosinophils% 1.4 % (0-5); Hematocrit 40.4 % (37-47); Hemoglobin 13.6 g/dL (12.0-15.0); Lymphocyte % 22.8 % (19-41); Mean Corp Hgb Conc 33.7 g/dL (32-36); Mean Corpuscular Hgb 31.9 pg (27.0-32.0); Mean Corpuscular Volume 94.8 fL (81-99); Mean Platelet Vol. 9.7 fl (6.2-12.0); Monocyte% 7.2 % (0-10); NRBC Flagged by Analyzer 0 % (0-5); Neutrophil # 5.65 X10^3/uL (2.7-7.7); Neutrophil % 67.7 % (47-70); Platelet Count 318 K/mm3 (150-450); RBC Distribution Width CV 12.2 % (11.6-14.6); RBC Distribution Width SD 42.5 fl (35.1-43.9); Red Blood Count 4.26 M/mm3 (4.2-5.4); White Blood Count 8.3 K/mm3 (4.4-11.0)
[2021-08-29 17:54] LABS: Erythrocyte Sedimentation Rate 28 mm/hr (0-30)
[2021-08-29 18:26] LABS: Hemoglobin A1c 11.5 % (3.8-5.6)
[2021-08-29 18:46] LABS: ALB/GLOB Ratio 0.9 RATIO (0.9-2.4); AST(SGOT) 26 U/L (15-37); Alanine Aminotransfer ALT/SGPT 35 U/L (13-56); Albumin, Serum 3.4 g/dL (3.2-5.0); Alkaline Phosphatase 145 U/L (45-117); Anion Gap 12 (5-15); BUN 18 mg/dL (7-18); BUN/Creat Ratio 17.6 RATIO (10-20); Calcium,Total 9.5 mg/dL (8.5-10.1); Chloride 96 mmol/L (98-107); Creatinine, Serum 1.02 mg/dL (0.55-1.02); EST Glomerular Filtration Rate 58 mL/min (>60); Est Glom Filt Rate - Afr Amer 70 mL/min (>60); Globulin 3.9 g/dL (2.2-4.2); Glucose 696 mg/dL (74-106); Potassium 4.3 mmol/L (3.5-5.1); Protein, Total 7.3 g/dL (6.4-8.2); Sodium Level 130 mmol/L (136-145); Thyroid Stim Hormone (TSH) 1.92 uIU/mL (0.358-3.74)
== END | disposition home or self-care (01) ==
LOC: MFPLAB 14:03
PROVIDERS: PCP Family Medicine; Visit Provider Family Medicine
DX: R19.7 Diarrhea, unspecified (principal); R53.81 Other malaise
CPT/HCPCS: 36415; 80053; 83036; 84443; 85025; 85652

== ENCOUNTER → 2021-08-30 | Outpatient (CLI) | payer OTHER, SELFPAY | END | disposition home or self-care (01) | LOC: MFPLAB 16:28 | PROVIDERS: PCP Family Medicine; Visit Provider Family Medicine | DX: R19.7 Diarrhea, unspecified (principal) | CPT/HCPCS: 87177; 87209; 87493; 87506 ==

== ENCOUNTER → 2022-06-10 | Outpatient (CLI) | payer BC, SELFPAY ==
[2022-06-10 17:46] LABS: Microalbumin,Random Urine 13.5 mg/L (NO RANGE EST.); Microalbumin:Creatinine Ratio 7.5 mg/g CRE (<30 mg/g CRE)
[2022-06-10 17:57] LABS: AST(SGOT) 15 U/L (15-37); Alanine Aminotransfer ALT/SGPT 21 U/L (13-56); Albumin, Serum 3.7 g/dL (3.2-5.0); Alkaline Phosphatase 93 U/L (45-117); Anion Gap 8 (5-15); BUN 21 mg/dL (7-18); BUN/Creat Ratio 22.9 RATIO (10-20); Bilirubin, Direct < 0.05 mg/dL (0.00-0.30); Calcium,Total 9.2 mg/dL (8.5-10.1); Chloride 106 mmol/L (98-107); Cholesterol 220 mg/dL (200); Creatinine, Serum 0.92 mg/dL (0.55-1.02); EST Glomerular Filtration Rate 65 mL/min (>60); Est Glom Filt Rate - Afr Amer 79 mL/min (>60); Globulin 3.7 g/dL (2.2-4.2); Glucose 100 mg/dL (74-106); High Density Lipoprotein 43 mg/dL; Protein, Total 7.4 g/dL (6.4-8.2); Sodium Level 140 mmol/L (136-145); Triglycerides 228 mg/dL; Very Low Density Lipoprotein 46 mg/dL (5-40)
== END | disposition home or self-care (01) ==
LOC: MFPLAB 16:39
PROVIDERS: PCP Family Medicine; Visit Provider Family Medicine
DX: E11.9 Type 2 diabetes mellitus without complications (principal)
CPT/HCPCS: 36415; 80048; 80061; 80076; 82043; 82570

== ENCOUNTER → 2024-01-22 | Outpatient (CLI) | payer MEDICARE, OTHER, SELFPAY ==
--- NOTE | 2024-01-22 10:53 | BI_ITS ---
MAMMOGRAPHY - BILATERAL SCREENING REASON FOR EXAM: Female, 63 years old. Routine annual screening examination. PERTINENT HISTORY: Non-contributory. Prior right breast biopsy. TECHNIQUE: Digital bilateral breast ez (3D mammographic acquisition) in the CC and MLO projections. 2-D mediolateral oblique (MLO) and craniocaudad (CC) views of both breasts were obtained. CAD: Full Field Digital Mammography with Computer Added Detection was performed. COMPARISON: No comparison mammograms available at this time. If any prior films become available, an addendum to this report can be generated. FINDINGS: Breast Composition: The breasts are heterogeneously dense, which may obscure small masses. There are no dominant masses or suspicious calcifications. A tissue clip marker is seen in the retrohilar region of the left breast implant with prior right breast biopsy. No other significant abnormalities are identified. BI/SCRN MAMM (CAD)W/EZ BILAT IMPRESSION: Negative screening mammogram. Yearly followup mammogram recommended. (A) ASSESSMENT CATEGORY: BIRADS Category 2: Benign. A letter regarding these results will be sent to the patient by the facility within 30 days. Approximately 10% of breast cancers are not detected by mammography. A normal mammogram should not delay biopsy of a clinically suspicious abnormality. [id number] Electronically Signed: Derek Wright MD at 11:57 EDT ,
== END | disposition home or self-care (01) ==
PROVIDERS: PCP Family Medicine; Visit Provider Family Medicine
DX: Z12.31 Encounter for screening mammogram for malignant neoplasm of breast (principal)
CPT/HCPCS: 77063; 77067

== ENCOUNTER → 2024-06-01 | Outpatient (CLI) | payer MEDICARE, OTHER, SELFPAY ==
[2024-06-01 17:57] LABS: Absolute Lymphocyte Count 2.92 X10^3/uL (0.83-4.51); Absolute Neutrophil Count 4.5 X10^3/uL (2.0-7.7); Basophil# 0.04 X10^3/uL; Basophil% 0.5 % (0-1); Eosinophils% 3.6 % (0-5); Hematocrit 40.5 % (37-47); Hemoglobin 13.5 g/dL (12.0-15.0); Lymphocyte # 2.92 X10^3/ul (0.83-4.51); Lymphocyte % 35.2 % (19-41); Mean Corp Hgb Conc 33.3 g/dL (32-36); Mean Corpuscular Hgb 32.1 pg (27.0-32.0); Mean Corpuscular Volume 96.4 fL (81-99); Mean Platelet Vol. 9.3 fl (6.2-12.0); Monocyte# 0.53 X10^3/uL; Monocyte% 6.4 % (0-10); NRBC Flagged by Analyzer 0 % (0-5); Neutrophil # 4.49 X10^3/uL (2.7-7.7); Neutrophil % 54.1 % (47-70); Platelet Count 347 K/mm3 (150-450); RBC Distribution Width CV 12.4 % (11.6-14.6); RBC Distribution Width SD 43.6 fl (35.1-43.9); White Blood Count 8.3 K/mm3 (4.4-11.0)
[2024-06-01 18:53] LABS: AST(SGOT) 16 U/L (15-37); Alanine Aminotransfer ALT/SGPT 23 U/L (13-56); Albumin, Serum 3.7 g/dL (3.2-5.0); Alkaline Phosphatase 93 U/L (45-117); Anion Gap 7 (5-15); BUN 17 mg/dL (7-18); BUN/Creat Ratio 22.2 RATIO (10-20); Bilirubin, Direct 0.08 mg/dL (0.00-0.30); Calcium,Total 8.8 mg/dL (8.5-10.1); Chloride 106 mmol/L (98-107); Cholesterol 197 mg/dL (200); Creatinine, Serum 0.76 mg/dL (0.55-1.02); EST Glomerular Filtration Rate 80 mL/min (>60); Est Glom Filt Rate - Afr Amer 97 mL/min (>60); Globulin 3.7 g/dL (2.2-4.2); Glucose 120 mg/dL (74-106); High Density Lipoprotein 48 mg/dL; Potassium 4.2 mmol/L (3.5-5.1); Protein, Total 7.4 g/dL (6.4-8.2); Sodium Level 139 mmol/L (136-145); Triglycerides 267 mg/dL; Very Low Density Lipoprotein 53 mg/dL (5-40)
[2024-06-01 19:29] LABS: Protein:Creat Ratio 56 mg/g CRE (0-200)
[2024-06-04 10:31] LABS: Hemoglobin A1c 6.2 % (3.8-5.6)
== END | disposition home or self-care (01) ==
LOC: MFPLAB 15:17
PROVIDERS: PCP Family Medicine; Referring Provider Family Medicine; Visit Provider Family Medicine
DX: F32.A Depression, unspecified (principal); E11.9 Type 2 diabetes mellitus without complications
CPT/HCPCS: 36415; 80048; 80061; 80076; 82570; 83036; 84156; 84443; 85025

== ENCOUNTER → 2024-10-07 | Outpatient (CLI) | payer MEDICARE, OTHER, SELFPAY ==
[2024-10-07 15:58] LABS: Microalbumin,Random Urine < 12.0 mg/L (NO RANGE EST.); Microalbumin:Creatinine Ratio UNABLE TO CALCULATE mg/g CRE
== END | disposition home or self-care (01) ==
LOC: MFPLAB 11:14
PROVIDERS: PCP Family Medicine; Referring Provider Family Medicine; Visit Provider Family Medicine
DX: E11.9 Type 2 diabetes mellitus without complications (principal)
CPT/HCPCS: 82043; 82570